=== PATIENT | female | born 1980 | race Hispanic/Latino ===

== ENCOUNTER 2018-03-21 16:55 | Emergency (ER) | payer OTHER ==
[2018-03-21 17:00] VITALS: BMI 23.0
[2018-03-21 17:02] VITALS: BP 113/76; RESP 16; TEMP 98.3; O2SAT 99
[2018-03-21] MEDS ORDERED: Sodium Chloride 0.9% 1,000 ML IV SCH (17:45)
--- NOTE | 2018-03-21 18:53 | ED PDOC ---
Syncope/Near Syncope/Dizziness Chief Complaint (Nursing): Dizziness/Lightheaded Chief Complaint (Provider): light headedness History Per: Patient History/Exam Limitations: no limitations Onset/Duration Of Symptoms: Days (1x) Additional Complaint(s): 38 year old female presents to the ED complaining of light headedness onset for one day. States she started her menstrual cycle which is heavy. Denies passing out, vision changes, vomiting, chest pain, shortness of breath, vaginal discharge, or bloody stool. PMD: No Family Provider Past Medical History Reviewed: Historical Data, Nursing Documentation, Vital Signs Vital Signs: Last Vital Signs Temp 98.3 F 03/21/18 17:00 Pulse 95 H 03/21/18 17:00 Resp 16 03/21/18 17:00 BP 113/76 03/21/18 17:00 Pulse Ox 99 03/21/18 17:00 - Medical History PMH: Anemia - Family History Family History: States: Unknown Family Hx - Allergies Allergies/Adverse Reactions: Allergies Allergy/AdvReac Type Severity Reaction Status Date / Time FISH Allergy RASH Verified 03/10/15 19:38 nut - unspecified Allergy SWELLING Verified 03/21/18 17:16 Review of Systems ROS Statement: Except As Marked, All Systems Reviewed And Found Negative Eyes: Negative for: Vision Change Cardiovascular: Negative for: Chest Pain Respiratory: Negative for: SOB with Exertion Gastrointestinal: Negative for: Vomiting Genitourinary Female: Negative for: Vaginal Discharge Neurological: Positive for: Dizziness (light headedness) Physical Exam - Reviewed Nursing Documentation Reviewed: Yes Vital Signs Reviewed: Yes - Physical Exam Appears: Positive for: Well, Non-toxic, No Acute Distress Head Exam: Positive for: ATRAUMATIC, NORMAL INSPECTION, NORMOCEPHALIC Skin: Positive for: Normal Color, Warm, Dry Eye Exam: Positive for: EOMI, Normal appearance, PERRL ENT: Positive for: Normal ENT Inspection Neck: Positive for: Normal, Painless ROM, Supple. Negative for: Decreased ROM Cardiovascular/Chest: Positive for: Regular Rate, Rhythm. Negative for: Murmur Respiratory: Positive for: Normal Breath Sounds. Negative for: Decreased Breath Sounds, Accessory Muscle Use, Respiratory Distress Gastrointestinal/Abdominal: Positive for: Normal Exam, Bowel Sounds, Soft. Negative for: Tenderness, Guarding, Rebound Back: Positive for: Normal Inspection. Negative for: L CVA Tenderness, R CVA Tenderness Extremity: Positive for: Normal ROM. Negative for: Tenderness, Pedal Edema, Deformity Neurologic/Psych: Positive for: Alert, Oriented (x3). Negative for: Motor/ Sensory Deficits - ECG ECG: Positive for: Interpreted By Me, Viewed By Me Interpretation Of ECG: normal interval Rate: 82 O2 Sat by Pulse Oximetry: 99 Medical Decision Making Medical Decision Making: Time: 1735 Initial Plan: --CMP --Drug screen --Magnesium --Troponin --ED urine --CBC w/ Differential --Normal Saline 1000 mls/hr --Urine culture --Urinalysis --Reevaluation Scribe Attestation: Documented by Uzair Costa, acting as a scribe for Syed Marte Do Provider Scribe Attestation: All medical record entries made by the Scribe were at my direction and personally dictated by me. I have reviewed the chart and agree that the record accurately reflects my personal performance of the history, physical exam, medical decision making, and the department course for this patient. I have also personally directed, reviewed, and agree with the discharge instructions and disposition. Disposition - Clinical Impression Clinical Impression: Dizziness - Patient ED Disposition Is Patient to be Admitted: No - Disposition Disposition: Eloped (patient walked out of ER after exam, but before any treatment. Nurse aware.) Disposition Time: 17:45 Condition: UNKNOWN Forms: [employer] ([employer])
[2018-03-21 18:59] VITALS: PULSE 82
== END 2018-03-21 19:06 | disposition left against medical advice (07) ==
LOC: H.ER 16:55
DX: R42 Dizziness and giddiness (principal)